=== PATIENT | female | born 1980 | race Caucasian/White ===

== ENCOUNTER 2019-05-07 20:45 | Emergency (ER) | payer BC ==
[~2019-05-07] VITALS: Ht 175.3 cm; Wt 81.8 kg
[2019-05-07] MEDS ORDERED: normal saline 1000ML IV soln IVB ONE ×2 (21:00)
[2019-05-07] MEDS ORDERED: diphenhydrAMINE 50 mg/ml inj IV ONE (21:00)
[2019-05-07] MEDS ORDERED: metoclopramide 5 mg/ml inj IV ONE (21:00)
[2019-05-07] MEDS ORDERED: NO HOME MEDS (21:36)
--- NOTE | 2019-05-07 21:53 | NUR ---
Pt had an episode of vomiting and heart rate increased to 150 during the vomiting and returned to 110-122 range after vomiting subsided.
[2019-05-07 21:58] LABS: BASOPHILS % (AUTO) 0.6 % (0-1); EOSINOPHILS % (AUTO) 0.3 % (0-6); HEMATOCRIT 44.9 % (35.0-45.0); HEMOGLOBIN 15.3 g/dl (12.0-16.0); LYMPHOCYTES # (AUTO) 0.5 X10'3 (1.1-4.8); LYMPHOCYTES % (AUTO) 20.5 % (21-51); MEAN CORPUSCULAR HEMOGLOBIN 30.8 PG (27.0-31.0); MEAN CORPUSCULAR VOLUME 90.6 FL (78-98); MEAN PLATELET VOLUME 8.6 FL (7.4-10.4); MONOCYTES # (AUTO) 0.2 X10'3 (0-0.9); MONOCYTES % (AUTO) 6.7 % (2-12); NEUTROPHILS # (AUTO) 1.8 X10'3 (1.8-7.7); NEUTROPHILS % (AUTO) 71.9 % (42-75); PLATELET COUNT 189 X10'3 (140-440); RED BLOOD COUNT 4.96 X10'6 (4.20-5.60); RED CELL DISTRIBUTION WIDTH 13.3 % (11.5-14.5); WHITE BLOOD COUNT 2.5 X10'3 (4.5-11.0)
[2019-05-07 22:09] LABS: ANION GAP 10 (8-16); BLOOD UREA NITROGEN 9 MG/DL (7-18); CHLORIDE 99 MMOL/L (99-107); CREATININE 0.96 MG/DL (0.40-0.90); GLUCOSE 90 MG/DL (70-104); POTASSIUM 3.7 MMOL/L (3.5-5.1); SODIUM 134 MMOL/L (135-145); TOTAL CARBON DIOXIDE 25.4 MMOL/L (24-32)
[2019-05-07 22:10] LABS: ALANINE AMINOTRANSFERASE 372 U/L (12-78); ALBUMIN 3.7 G/DL (3.4-5.0); ALBUMIN/GLOBULIN RATIO 0.9 (1.1-1.5); ALKALINE PHOSPHATASE 203 IU/L (46-116); ASPARTATE AMINO TRANSFERASE 191 U/L (10-37); BILIRUBIN,TOTAL 0.5 MG/DL (0.1-1.0); BUN/CREATININE RATIO 9.4 (6.6-38.0); C-REACTIVE PROTEIN 0.44 MG/DL (0.0-0.5); CALCIUM 8.3 MG/DL (8.5-10.1); LACTATE DEHYDROGENASE 242 U/L (81-234); LIPASE 212 U/L (73-393); TOTAL PROTEIN 7.9 G/DL (6.4-8.2); eGFR 64 ML/MIN
[2019-05-07] MEDS ORDERED: ketorolac trometh. 30mg/ml inj. IV ONE (22:20)
[2019-05-07] MEDS ORDERED: ondansetron/PF 4mg/2ml inj IV ONE (22:20)
[2019-05-07 22:43] LABS: COLOR,URINE YELLOW (Yellow); GLUCOSE, URINE NEGATIVE (Neg); KETONES,URINE >=80 mg/dl (Neg); LEUKOCYTE ESTERASE ,URINE NEGATIVE (Neg); NITRITES, URINE NEGATIVE (Neg); OCCULT BLOOD,URINE NEGATIVE (Neg); PROTEIN,URINE 30 mg/dl (Neg); UROBILINOGEN,URINE 0.2 E.U/dL (0.2-1.0)
[2019-05-07 22:44] LABS: URINE HCG NEGATIVE (NEG)
[2019-05-07 22:48] LABS: PLATELET ESTIMATE NORMAL; TOTAL CELLS COUNTED 100
[2019-05-07 22:49] LABS: BACTERIA,URINE FEW /HPF (Neg); CLARITY,URINE SLIGHTLY CLOUDY (Clear); RBC,URINE 0-2 /HPF (0-2); SQUAMOUS EPITHELIAL CELL,UR MODERATE /LPF (FEW); UA COLLECTION TYPE CLN CATCH MIDSTREAM; WBC,URINE 0-4 /HPF (0-4)
[2019-05-07] MEDS ORDERED: azithromycin 250mg tablet PO ONE (23:35)
[2019-05-07] MEDS ORDERED: TAM75C PO (23:58)
[2019-05-07] MEDS ORDERED: AZIT-63 PO (23:58)
[2019-05-08] MEDS ORDERED: oseltamivir phos 75mg capsule PO ONE (00:05)
[2019-05-08] MEDS ORDERED: ONDA4TAB12 PO (00:07)
[2019-05-08 00:38] VITALS: BP 104/67
== END 2019-05-08 01:52 | disposition home or self-care (01) ==
LOC: ER 20:45
DX: R11.10 Vomiting, unspecified (principal); Z20.828 Contact with and (suspected) exposure to other viral communicable diseases; B34.9 Viral infection, unspecified; Z88.0 Allergy status to penicillin; Z79.2 Long term (current) use of antibiotics
CPT/HCPCS: 36415; 71045; 80053; 81001; 81025; 83615; 83690; 84145; 85025; 85379; 86140; 87635; 96361; 96374; 96375; 99285; J1200; J1885; J2405; J2765; J7030